=== PATIENT | female | born 1960 | race Caucasian/White ===

== ENCOUNTER 2023-03-27 15:44 | Emergency (ER) | payer MEDICAID, SELFPAY ==
[2023-03-27 16:27] VITALS: BP 117/78; PULSE 62; RESP 18; TEMP 36.9; O2SAT 98; BMI 24.9
--- NOTE | 2023-03-27 16:32 | XR_ITS ---
The [place] [id number] Patient Name: MIKE ALLISON MRN: [id number] date: 1960 Sex: F Assigned Patient Location: ER Current Patient Location: ED.MAIN Accession/Order Number: [id number] Exam Date: 03/27/2023 16:40 Report Date: 03/27/2023 17:37 At the request of: ANNALISA BARBA Procedure: XR chest 2V XR chest 2V 03/27/2023 4:40 PM EDT INDICATION: Dyspnea x1 week. COMPARISON: Radiograph the chest 06/15/2011 FINDINGS: Cardiomediastinal silhouette within normal limits. Left perihilar bronchial wall thickening with faint groundglass opacity in the left lower lobe. No focal consolidation or pleural effusion. No pneumothorax. Cholecystectomy clips right upper quadrant. No acute fracture or dislocation. Fixation hardware lumbar spine. IMPRESSION: 1. Infectious versus inflammatory bronchiolitis within the left lower lobe. Electronically authenticated by: GILBERT CORDERO Date: 03/27/2023 17:37
--- NOTE | 2023-03-27 16:38 | ED.URI1 ---
HPI - URI/Sore Throat General Chief Complaint: Upper Respiratory Infection Stated Complaint: URTI Time Seen by Provider: 03/27/23 16:35 Source: patient Limitations: no limitations History of Present Illness HPI Narrative: 62-year-old female presents for a four day history of cough and her left lung hurting. She coughed up some brown phlegm today. She is not worried about Covid. No vomiting or diarrhea. She thought she would be getting better within four days but she didn't so she came in here. She is a nonsmoker. Related Data Previous Rx's Medication Instructions Recorded azithromycin 250 mg tablet See Rx Instructions PO .COMPLEX #6 03/27/23 (Zithromax Z-Reece) tabs benzonatate 200 mg capsule 200 mg PO TID PRN cough #20 caps 03/27/23 Allergies Allergy/AdvReac Type Severity Reaction Status Date / Time Penicillins Allergy Intermediate Verified 03/27/23 16:29 Review of Systems ROS Narrative A ten point review of systems is negative except as noted above. Exam Narrative Exam Narrative: Nurses note and vital signs reviewed and patient is not hypoxic. General: The patient appears well and in no apparent distress. Patient is resting comfortably on cart. Skin: Warm, dry, no pallor noted. There is no rash noted. Head: Normocephalic, atraumatic Eye: Normal conjunctiva, no drainage Ears, Nose, Mouth, and Throat: oral mucosa is moist. Nares patent. Cardiovascular: Regular Rate and Rhythm Respiratory: Patient is in no distress, no accessory muscle use, lungs are clear to auscultation, no wheezing, rales or rhonchi Back: non-tender GI: soft and nontender Musculoskeletal: The patient has no evidence of calf tenderness, no pitting edema, symmetrical pulses noted bilaterally Neurological: A&O, normal speech Psychiatric: Cooperative Constitutional Vital Signs - 24 hr 03/27/23 16:27 Temperature 98.5 F Pulse Rate [Monitor] 62 Respiratory Rate 18 Blood Pressure [Left Arm] 117/78 Pulse Oximetry 98 Oxygen Delivery Method Room Air Course Vital Signs Vital signs: Vital Signs Temperature 98.5 F 03/27/23 16:27 Pulse Rate 62 03/27/23 16:27 Respiratory Rate 18 03/27/23 16:27 Blood Pressure 117/78 03/27/23 16:27 Pulse Oximetry 98 03/27/23 16:27 Oxygen Delivery Method Room Air 03/27/23 16:27 Temperature 98.5 F 03/27/23 16:27 Pulse Rate 62 03/27/23 16:27 Respiratory Rate 18 03/27/23 16:27 Blood Pressure 117/78 03/27/23 16:27 Pulse Oximetry 98 03/27/23 16:27 Oxygen Delivery Method Room Air 03/27/23 16:27 MDM - URI/Sore Throat MDM Narrative Medical decision making narrative: chest x-ray per radiologist shows bronchiolitis but no infiltrate. Treatment diagnosis and follow-up were discussed with the patient. Differential Diagnosis Differential diagnosis: Likely upper respiratory infection, viral infection, bronchitis and pharyngitis Discharge Plan Discharge Chief Complaint: Upper Respiratory Infection Clinical Impression: Upper respiratory infection Patient Disposition: Home, Self-Care Time of Disposition Decision: 18:25 Condition: Good Mode of Transportation: Private Vehicle Prescriptions / Home Meds: New azithromycin [Zithromax Z-Reece] 250 mg tablet See Rx Instructions .ROUTE .COMPLEX Qty: 6 0RF Rx Instructions: For 250 mg dose pack: take 500 mg today (day 1), then 250 mg for 4 days (days 2-5) benzonatate 200 mg capsule 200 mg PO TID PRN (Reason: cough) Qty: 20 0RF Instructions: Upper Respiratory Infection (ED) Stand Alone Forms: Portal Instructions Referrals: Physician,Non-Staff, MD [Primary Care Provider] - 1 week
== END 2023-03-27 18:43 | disposition home or self-care (01) ==
PROVIDERS: Emergency Provider Emergency Medicine
DX: J06.9 Acute upper respiratory infection, unspecified (principal)
CPT/HCPCS: 71046; 99283

== ENCOUNTER 2024-01-18 16:24 | Emergency (ER) | payer MEDICAID, SELFPAY ==
[2024-01-18 16:33] VITALS: BP 142/90; PULSE 76; TEMP 36.7; O2SAT 97; BMI 23.8
--- NOTE | 2024-01-18 16:40 | ED.URI1 ---
HPI - URI/Sore Throat General Chief Complaint: Upper Respiratory Infection Stated Complaint: shortness of breath Time Seen by Provider: 01/18/24 16:30 Source: patient Limitations: no limitations History of Present Illness HPI Narrative: Patient is a 63-year-old female who presents to the emergency department with flulike illness of cough and congestion that began yesterday. She has had no fevers, chest pain. She states she has burning in her left lung when she coughs and she is worried that she may have aspirated when she reflux yesterday. She has had no persistent vomiting or diarrhea. She does not take any medications for COPD, she does not smoke. She states her boyfriend had influenza last week. No medications prior to arrival. Related Data Previous Rx's ?Medication ?Instructions ?Recorded azithromycin 250 mg tablet See Rx Instructions PO .COMPLEX #6 03/27/23 (Zithromax Z-Reece) tabs benzonatate 200 mg capsule 200 mg PO TID PRN cough #20 caps 03/27/23 tklgxnvvumunnlb-lwveszulpnfwqsy-FD 10 ml PO Q6H PRN cold symptoms 01/18/24 2 mg-30 mg-10 mg/5 mL oral syrup #200 mL (Bromfed DM) Allergies Allergy/AdvReac Type Severity Reaction Status Date / Time Penicillins Allergy Intermediate Verified 03/27/23 16:29 Review of Systems ROS Constitutional Denies: fever or chills Ears, nose, mouth, and throat Denies: throat pain or nasal congestion Cardiovascular Denies: chest pain Respiratory Reports: cough; Denies: shortness of breath, wheezing, change in phlegm color or coughing up blood Gastrointestinal Denies: nausea or vomiting Musculoskeletal Denies: back pain Integumentary/Breast Denies: rash Hematologic/Lymphatic Denies: easy bruising or easy bleeding Exam Narrative Exam Narrative: Gen.: Awake, alert, in no distress Head: Normocephalic, atraumatic ENT: Moist mucous membranes Respiratory: No respiratory distress, lungs clear bilaterally; Patient speaks in full sentences, no wheezing or rhonchi noted Cardio: Regular rate and rhythm Extremities: Moves extremities equally, no pedal edema Psych: Normal mood and affect Neuro: No focal neuro deficit Skin: Warm, dry, intact Constitutional Vital Signs, click to edit/add: Last Vital Signs Temp 98.1 F 01/18/24 16:33 Pulse 76 01/18/24 16:33 Resp 18 01/18/24 16:33 BP 142/90 H 01/18/24 16:33 Pulse Ox 97 01/18/24 16:33 O2 Del Method Room Air 01/18/24 16:33 Course Vital Signs Vital signs: Vital Signs Temperature 98.1 F 01/18/24 16:33 Pulse Rate 76 01/18/24 16:33 Respiratory Rate 18 01/18/24 16:33 Blood Pressure 142/90 H 01/18/24 16:33 Pulse Oximetry 97 01/18/24 16:33 Oxygen Delivery Method Room Air 01/18/24 16:33 Temperature 98.1 F 01/18/24 16:33 Pulse Rate 76 01/18/24 16:33 Respiratory Rate 18 01/18/24 16:33 Blood Pressure 142/90 H 01/18/24 16:33 Pulse Oximetry 97 01/18/24 16:33 Oxygen Delivery Method Room Air 01/18/24 16:33 MDM - URI/Sore Throat MDM Narrative Medical decision making narrative: COVID swabs obtained, chest x-ray obtained. Patient with stable vital signs in the emergency department. She is negative for COVID and influenza, chest x-ray with no evidence of aspiration. Patient given Decadron in the ER and discharged home on a cough medication. Follow-up with PCP and return to the ER if symptoms change or worsen Medical Records Attestation: I reviewed the patient's medical records. Lab Data Attestation: I reviewed the patient's lab results. Labs: Lab Results 01/18/24 Range/Units 16:45 Influenza Type A Ag Negative Influenza Type B Ag Negative SARS-CoV-2 Ag (CV2AG) Negative (NEGATIVE) Imaging Data Chest x-ray: Attestation: I have reviewed the pertinent imaging results. Radiologist's impression: ITS Impressions Chest X-Ray 01/18/24 16:45 IMPRESSION: No acute abnormality identified. Electronically authenticated by: John MAURO Date: 01/18/2024 17:41 Discharge Plan Discharge Stand Alone Forms: Portal Instructions Chief Complaint: Upper Respiratory Infection Clinical Impression: Upper respiratory infection Patient Disposition: Home, Self-Care Time of Disposition Decision: 17:46 Condition: Good Prescriptions / Home Meds: New kaadncpsdwdttvf-krjpecjve-[place] [Bromfed DM] 2-30-10 mg/5 mL syrup 10 ml PO Q6H PRN (Reason: cold symptoms) Qty: 200 0RF No Action azithromycin [Zithromax Z-Reece] 250 mg tablet See Rx Instructions .ROUTE .COMPLEX Qty: 6 0RF Rx Instructions: For 250 mg dose pack: take 500 mg today (day 1), then 250 mg for 4 days (days 2-5) benzonatate 200 mg capsule 200 mg PO TID PRN (Reason: cough) Qty: 20 0RF Print Language: Monegasque Instructions: Upper Respiratory Infection (ED) Referrals: [facility] [Primary Care Provider] - 1 week
--- NOTE | 2024-01-18 16:45 | XR_ITS ---
[address] [address] Patient Name: MIKE ALLISON MRN: [id number] date: 1960 Sex: F Assigned Patient Location: ER Current Patient Location: ER Accession/Order Number: [id number] Exam Date: 01/18/2024 16:42 Report Date: 01/18/2024 17:41 At the request of: SUSHILA JOYA Procedure: XR chest 1V ONE-VIEW CHEST RADIOGRAPH, 01/18/2024 4:42 PM EDT COMPARISON: Chest, 06/15/2011 CLINICAL HISTORY: Cough FINDINGS: No acute cardiopulmonary disease. No pulmonary edema, pneumothorax, or pleural effusion. Normal heart size. No acute osseous abnormality. XR/XR chest 1V IMPRESSION: No acute abnormality identified. Electronically authenticated by: John MAURO Date: 01/18/2024 17:41
[2024-01-18 17:14] LABS: Influenza Virus A Antigen Negative; Influenza Virus B Antigen Negative; Internal Control Within Normal Limits; SARS-CoV-2 Ag NEGATIVE (NEGATIVE)
[2024-01-18] MEDS: DEXAMETHASONE SOD PHOS 10 MG/ML VIAL PO (17:53)
== END 2024-01-18 17:56 | disposition home or self-care (01) ==
PROVIDERS: Physician Assistant; Emergency Provider Emergency Medicine
DX: J06.9 Acute upper respiratory infection, unspecified (principal); Z20.822 Contact with and (suspected) exposure to COVID-19
CPT/HCPCS: 71045; 87804; 87811; 99285; J1100

== ENCOUNTER 2024-05-29 14:04 | Emergency (ER) | payer MEDICAID, SELFPAY ==
[2024-05-29 14:08] VITALS: BP 132/84; PULSE 89; TEMP 37.1; O2SAT 98; BMI 24.3
--- NOTE | 2024-05-29 14:15 | ED_ITS ---
<Statement entered by Lakeisha Henry MD - 05/29/24 15:32> This documentation has been reviewed and approved. HPI - URI/Sore Throat General Chief Complaint: Upper Respiratory Infection Stated Complaint: SINUS INFECTION Time Seen by Provider: 05/29/24 14:12 History of Present Illness HPI Narrative: 64 year old female presents to the ED for bilateral ear pain, SMALL, sore throat, sinus congestion/drainage. Onset was 4-5 days ago. Denies fever, chills, cough, SOB. She has been taking Tylenol for her sx. Related Data Previous Rx's ?Medication ?Instructions ?Recorded azithromycin 250 mg tablet See Rx Instructions PO .COMPLEX #6 03/27/23 (Zithromax Z-Reece) tabs benzonatate 200 mg capsule 200 mg PO TID PRN cough #20 caps 03/27/23 rvsygaujrqijwdb-tyrhccacnwizfnu-JY 10 ml PO Q6H PRN cold symptoms 01/18/24 2 mg-30 mg-10 mg/5 mL oral syrup #200 mL (Bromfed DM) cetirizine 10 mg capsule (Zyrtec) 10 mg PO DAILY #7 caps 05/29/24 guaifenesin 600 mg tablet, 600 mg PO BID PRN congestion #10 05/29/24 extended release 12 hr (Mucinex) tabs prednisone 20 mg tablet 20 mg PO BID 5 days #10 tabs 05/29/24 Allergies Allergy/AdvReac Type Severity Reaction Status Date / Time sertraline [From Zoloft] Allergy Severe Joint Pain Verified 05/29/24 14:08 Penicillins Allergy Intermediate Rash Verified 05/29/24 14:08 Review of Systems ROS Constitutional Denies: fever or chills Ears, nose, mouth, and throat Reports: throat pain, ear pain, nasal discharge and nasal congestion; Denies: neck pain, throat swelling, difficulty swallowing or ear discharge Cardiovascular Denies: chest pain Respiratory Denies: shortness of breath or cough Gastrointestinal Denies: abdominal pain, nausea or vomiting Neurological Reports: headache; Denies: dizziness Exam Constitutional Vital Signs, click to edit/add: Last Vital Signs Temp 98.8 F 05/29/24 14:08 Pulse 89 05/29/24 14:08 Resp 16 05/29/24 14:08 BP 132/84 05/29/24 14:08 Pulse Ox 98 05/29/24 14:08 Common normals: no apparent distress and oriented x3 General appearance: cooperative HENMT Common normals: normocephalic Face and sinus: normal facial exam Nose: external nose normal and nares normal; no nasal discharge External ear: external ears normal External auditory canal: EACs normal Tympanic membrane: TMs normal bilaterally Mouth: oral and palatal mucosa normal, lip normal and tongue normal; no drooling and no muffled voice Throat: posterior oropharynx normal and uvula midline Eye Common normals: conjunctivae normal and no scleral icterus Neck & C-Spine Common normals: supple Chest Chest: symmetrical chest wall rise Respiratory Common normals: normal respiratory effort and clear to auscultation bilaterally Effort & inspection: able to speak in complete sentences Cardio Common normals: regular rate and regular rhythm Neuro Common normals: oriented x3 Sensorium/orientation: awake and alert Speech: speech normal Course Vital Signs Vital signs: Vital Signs Temperature 98.8 F 05/29/24 14:08 Pulse Rate 89 05/29/24 14:08 Respiratory Rate 16 05/29/24 14:08 Blood Pressure 132/84 05/29/24 14:08 Pulse Oximetry 98 05/29/24 14:08 Temperature 98.8 F 05/29/24 14:08 Pulse Rate 89 05/29/24 14:08 Respiratory Rate 16 05/29/24 14:08 Blood Pressure 132/84 05/29/24 14:08 Pulse Oximetry 98 05/29/24 14:08 MDM - URI/Sore Throat MDM Narrative Medical decision making narrative: Covid-19 was negative. Sx onset was 4-5 days ago. She requested prednisone. Prescriptions were provided for prednisone, Zyrtec, and Mucinex. Follow up with pcp for a recheck, further evaluation and treatment. Differential Diagnosis Differential diagnosis: Likely upper respiratory infection, sinusitis, viral infection and pharyngitis Medical Records Attestation: I reviewed the patient's medical records. Lab Data Attestation: I reviewed the patient's lab results. Labs: Lab Results 05/29/24 Range/Units 14:11 SARS-CoV-2 Ag (CV2AG) Negative (NEGATIVE) Discharge Plan Discharge Stand Alone Forms: Work/School Release, Portal Instructions Chief Complaint: Upper Respiratory Infection Clinical Impression: Upper respiratory infection, viral Patient Disposition: Home, Self-Care Time of Disposition Decision: 15:01 Condition: Good Mode of Transportation: Private Vehicle Prescriptions / Home Meds: New prednisone 20 mg tablet 20 mg PO BID 5 Days Qty: 10 0RF guaifenesin [Mucinex] 600 mg tablet extended release 12hr 600 mg PO BID PRN (Reason: congestion) Qty: 10 0RF Zyrtec 10 mg capsule 10 mg PO DAILY Qty: 7 0RF No Action fvmsresnhzknpxd-ohqgtympd-YD [Bromfed DM] 2-30-10 mg/5 mL syrup 10 ml PO Q6H PRN (Reason: cold symptoms) Qty: 200 0RF azithromycin [Zithromax Z-Reece] 250 mg tablet See Rx Instructions .ROUTE .COMPLEX Qty: 6 0RF Rx Instructions: For 250 mg dose pack: take 500 mg today (day 1), then 250 mg for 4 days (days 2-5) benzonatate 200 mg capsule 200 mg PO TID PRN (Reason: cough) Qty: 20 0RF Print Language: Serbian Additional Instructions: Return to the ER for new or worsening symptoms. Referrals: [facility] [Primary Care Provider] - 1 week
[2024-05-29 14:57] LABS: Internal Control Within Normal Limits; SARS-CoV-2 Ag NEGATIVE (NEGATIVE)
[2024-05-29 15:20] VITALS: PULSE 75; O2SAT 99
== END 2024-05-29 15:22 | disposition home or self-care (01) ==
PROVIDERS: Emergency Provider Emergency Medicine
DX: J06.9 Acute upper respiratory infection, unspecified (principal); Z20.822 Contact with and (suspected) exposure to COVID-19
CPT/HCPCS: 87811; 99283

== ENCOUNTER 2024-09-09 11:21 | Emergency (ER) | payer MEDICAID, SELFPAY ==
[2024-09-09 11:36] VITALS: BP 122/73; PULSE 92; TEMP 36.7; O2SAT 100; BMI 24.5
--- NOTE | 2024-09-09 11:49 | XR_ITS ---
The [address] [address] Patient Name: MIKE ALLISON MRN: [id number] date: 1960 Sex: F Assigned Patient Location: ER Current Patient Location: ER Accession/Order Number: [id number] Exam Date: 09/09/2024 12:37 Report Date: 09/09/2024 13:54 At the request of: ANNALISA BARBA Procedure: XR abdomen 1V EXAM: XR abdomen 1V HISTORY: Left upper quadrant pain COMPARISON: None. TECHNIQUE: Supine KUB. FINDINGS: No bowel distention, ileus or obstruction. Large amount colonic stool especially pattern flexure, splenic flexure left colon and pelvic colon. No flank or pelvic calcification. Right upper quadrant vascular clips from previous cholecystectomy. Hardware seen lumbar sacral spine from previous surgery. Mild DJD hips. XR/XR abdomen 1V IMPRESSION: No evidence of bowel distention, ileus or obstruction. Large amount of colonic stool most prominent splenic flexure and left colon. Electronically authenticated by: BHUMI WOODY Date: 09/09/2024 13:54
--- NOTE | 2024-09-09 11:50 | ED_ITS ---
HPI HPI - General Adult General Chief complaint: Urogenital-Female Stated complaint: FLANK PAIN Time Seen by Provider: 09/09/24 11:22 Source: patient Mode of arrival: walk-in History of Present Illness HPI narrative: 64-year-old female presents for left upper quadrant abdominal pain. She has had it for about 48 hours and it seems to come and go and is sharp. It was not precipitated by any unusual activity or any trauma. She has had no dysuria or hematuria. She has had no constipation or diarrhea. No vomiting or loss of appetite. Related Data Home Medications ?Medication ?Instructions ?Recorded ?Confirmed clonazepam 0.5 mg tablet 0.5 mg PO .QD PRN anxiety 09/09/24 09/09/24 ferrous sulfate 325 mg (65 mg 325 mg PO BIDWM 09/09/24 09/09/24 iron) tablet (FeroSul) gabapentin 300 mg capsule 300 mg PO TID PRN restless leg(s) 09/09/24 09/09/24 losartan 50 mg tablet 50 mg PO .QD 09/09/24 09/09/24 magnesium oxide 400 mg (241.3 mg 400 mg PO BID 09/09/24 09/09/24 magnesium) tablet meloxicam 15 mg tablet 15 mg PO .QD 09/09/24 09/09/24 omeprazole 20 mg capsule,delayed 20 mg PO .ACB 09/09/24 09/09/24 release potassium chloride 10 mEq 10 meq PO BIDWM 09/09/24 09/09/24 tablet,extended release pramipexole 0.125 mg tablet 0.125 mg PO .QHS 09/09/24 09/09/24 spironolactone 50 mg tablet 50 mg PO .ACB 09/09/24 09/09/24 Previous Rx's ?Medication ?Instructions ?Recorded cetirizine 10 mg capsule (Zyrtec) 10 mg PO DAILY #7 caps 05/29/24 Allergies Allergy/AdvReac Type Severity Reaction Status Date / Time sertraline (From Zoloft) Allergy Severe Joint Pain Verified 05/29/24 14:08 Penicillins Allergy Intermediate Rash Verified 05/29/24 14:08 Opioid HPI Opioid Management Most Recent Opioid Data: No Data to Display Review of Systems ROS Narrative A ten point review of systems is negative except as noted above. PFSH PFSH Social History Little interest or pleasure in doing things: not at all Feeling down, depressed, or hopeless: not at all Exam Narrative Exam Narrative: Nurses note and vital signs reviewed and patient is not hypoxic. General: The patient appears well and in no apparent distress. Patient is resting comfortably on cart. Skin: Warm, dry, no pallor noted. There is no rash noted. Head: Normocephalic, atraumatic Eye: Normal conjunctiva, no drainage Ears, Nose, Mouth, and Throat: oral mucosa is moist. Nares patent. Cardiovascular: Regular Rate and Rhythm Respiratory: Patient is in no distress, no accessory muscle use, lungs are clear to auscultation, no wheezing, rales or rhonchi Back: non-tender GI: Soft and nondistended. Very minimal tenderness in the left upper quadrant without mass. Musculoskeletal: The patient has no evidence of calf tenderness, no pitting edema, symmetrical pulses noted bilaterally Neurological: A&O, normal speech Psychiatric: Cooperative Constitutional Vital Signs, click to edit/add: Last Vital Signs Temp 98.1 F 09/09/24 11:36 Pulse 92 H 09/09/24 11:36 Resp 16 09/09/24 11:36 BP 122/73 09/09/24 11:36 Pulse Ox 100 09/09/24 11:36 O2 Del Method Room Air 09/09/24 11:36 Course Vital Signs Vital signs: Vital Signs Temperature 98.1 F 09/09/24 11:36 Pulse Rate 92 H 09/09/24 11:36 Respiratory Rate 16 09/09/24 11:36 Blood Pressure 122/73 09/09/24 11:36 Pulse Oximetry 100 09/09/24 11:36 Oxygen Delivery Method Room Air 09/09/24 11:36 Temperature 98.1 F 09/09/24 11:36 Pulse Rate 92 H 09/09/24 11:36 Respiratory Rate 16 09/09/24 11:36 Blood Pressure 122/73 09/09/24 11:36 Pulse Oximetry 100 09/09/24 11:36 Oxygen Delivery Method Room Air 09/09/24 11:36 Medical Decision Making MDM Narrative Medical decision making narrative: Blood work and urinalysis are negative. X-ray shows constipation. Treatment diagnosis and follow-up were discussed with the patient and she was recommended MiraLAX. Differential Diagnosis Differential Diagnosis: Constipation, UTI, nonspecific abdominal pain Lab Data Lab results reviewed: Yes I reviewed the patient's lab results Labs: Lab Results 09/09/24 09/09/24 Range/Units 11:43 11:57 WBC 5.3 (4.0-11.0) 10^3/uL RBC 4.33 (4.20-5.40) 10^6/uL Hgb 12.6 (12.0-16.0) g/dL Hct 37.2 (36.0-48.0) % MCV 85.9 (81.0-99.0) fL MCH 29.1 (26.7-34.0) pg MCHC 33.9 (29.9-35.2) g/dL RDW 12.1 (11.0-15.0) % Plt Count 259 (150-450) 10^3/uL MPV 8.7 L (9.5-13.5) fL Neut % (Auto) 64.1 (43.0-75.0) % Lymph % (Auto) 24.7 (20.5-60.0) % [place] % (Auto) 8.9 (1.7-12.0) % Eos % (Auto) 1.3 (0.9-7.0) % Baso % (Auto) 0.8 (0.2-2.0) % Neut # (Auto) 3.4 (1.4-6.5) 10^3/uL Lymph # (Auto) 1.3 (1.2-3.8) 10^3/uL [place] # (Auto) 0.5 (0.3-0.8) 10^3/uL Eos # (Auto) 0.1 (0.0-0.7) 10^3/uL Baso # (Auto) 0.0 (0.0-0.1) 10^3/uL Abs Immat Gran (auto) 0.01 (0.00-0.03) 10^3/uL Imm/Tot Granulo (auto) 0.2 (0.0-0.5) % Sodium 139 (136-145) mmol/L Potassium 4.2 (3.5-5.1) mmol/L Chloride 101 (98-107) mmol/L Carbon Dioxide 27.5 (21.0-32.0) mmol/L Anion Gap 14.7 BUN 14.0 (7.0-18.0) mg/dL Creatinine 1.17 H (0.55-1.02) mg/dL Est GFR ( Amer) 56 L (>=60 mL/min/1.73m^2) Est GFR (Non-Af Amer) 47 L (>=60 mL/min/1.73m^2) BUN/Creatinine Ratio 12.0 Glucose 95 (74-106) mg/dL Calcium 9.0 (8.5-10.1) mg/dL Urine Color Lt. yellow (YELLOW) Urine Clarity Clear (CLEAR) Urine pH 5.5 (5.0-9.0) Ur Specific [place] 1.020 (1.005-1.025) Urine Protein Negative (NEG/TRACE) mg/dL Urine Glucose (UA) Negative (NEGATIVE) mg/dL Urine Ketones Negative (NEGATIVE) mg/dL Urine Occult Blood Small A (NEGATIVE) Urine Nitrite Negative (NEGATIVE) Urine Bilirubin Negative (NEGATIVE) Urine Urobilinogen 0.2 (0.2-1.0) EU/dL Ur Leukocyte Esterase Negative (NEGATIVE) Urine RBC 0-2 (0-2) #/HPF Urine WBC 0-2 A (NONE SEEN) #/HPF Ur Squamous Epith Cells Few A (NONE/RARE) #/LPF Urine Crystals None seen (None Seen) #/HPF Urine Bacteria Trace A (NONE SEEN) #/HPF Urine Casts None seen (NONE SEEN) #/LPF Urine Mucus None seen (NONE SEEN) Imaging Data Abdominal x-ray: Radiologist's impression: ITS Impressions Abdomen X-Ray 09/09/24 11:49 IMPRESSION: No evidence of bowel distention, ileus or obstruction. Large amount of colonic stool most prominent splenic flexure and left colon. Electronically authenticated by: BHUMI WOODY Date: 09/09/2024 13:54 Discharge Plan Discharge Chief Complaint: Urogenital-Female Clinical Impression: Constipation Patient Disposition: Home, Self-Care Time of Disposition Decision: 14:15 Condition: Good Mode of Transportation: Private Vehicle Prescriptions / Home Meds: No Action losartan 50 mg tablet 50 mg PO .QD meloxicam 15 mg tablet 15 mg PO .QD clonazepam 0.5 mg tablet 0.5 mg PO .QD PRN (Reason: anxiety) potassium chloride 10 mEq tablet extended release 10 meq PO BIDWM ferrous sulfate [FeroSul] 325 mg (65 mg iron) tablet 325 mg PO BIDWM pramipexole 0.125 mg tablet 0.125 mg PO .QHS Rx Instructions: 1-2 HRS PRIOR TO BEDTIME gabapentin 300 mg capsule 300 mg PO TID PRN (Reason: restless leg(s)) omeprazole 20 mg capsule,delayed release(DR/EC) 20 mg PO .ACB spironolactone 50 mg tablet 50 mg PO .ACB magnesium oxide 400 mg (241.3 mg magnesium) tablet 400 mg PO BID Zyrtec 10 mg capsule 10 mg PO DAILY Qty: 7 0RF Print Language: Albanian Instructions: Constipation (ED) Additional Instructions: Ieou-sxq-rxsuwjx MiraLAX for constipation Referrals: [facility] [Primary Care Provider] - 1 week
[2024-09-09 12:06] LABS: Basophils Percent Auto 0.8 % (0.2-2.0); Eosinophils Absolute Auto 0.1 10^3/uL (0.0-0.7); Eosinophils Percent Auto 1.3 % (0.9-7.0); Hematocrit 37.2 % (36.0-48.0); Hemoglobin 12.6 g/dL (12.0-16.0); Immature Granulocytes Abs Auto 0.01 10^3/uL (0.00-0.03); Immature Granulocytes Pct Auto 0.2 % (0.0-0.5); Lymphocytes Absolute Auto 1.3 10^3/uL (1.2-3.8); Lymphocytes Percent Auto 24.7 % (20.5-60.0); Mean Corpuscular HGB Conc 33.9 g/dL (29.9-35.2); Mean Corpuscular Hemoglobin 29.1 pg (26.7-34.0); Mean Corpuscular Volume 85.9 fL (81.0-99.0); Mean Platelet Volume 8.7 fL (9.5-13.5); Monocytes Absolute Auto 0.5 10^3/uL (0.3-0.8); Monocytes Percent Auto 8.9 % (1.7-12.0); Neutrophils Absolute Auto 3.4 10^3/uL (1.4-6.5); Neutrophils Percent Auto 64.1 % (43.0-75.0); Platelet Count 259 10^3/uL (150-450); Red Blood Count 4.33 10^6/uL (4.20-5.40); Red Cell Distribution Width 12.1 % (11.0-15.0); White Blood Count 5.3 10^3/uL (4.0-11.0)
[2024-09-09 12:09] LABS: Bilirubin Urine NEGATIVE (NEGATIVE); Blood Urine SMALL (NEGATIVE); Clarity Urine CLEAR (CLEAR); Color Urine LT. YELLOW (YELLOW); Glucose Urine UA NEGATIVE (NEGATIVE); Ketones Urine NEGATIVE (NEGATIVE); Leukocyte Esterase Urine NEGATIVE (NEGATIVE); Nitrite Urine NEGATIVE (NEGATIVE); Protein Urine NEGATIVE (NEG/TRACE); Urobilinogen Urine 0.2 EU/dL (0.2-1.0); pH Urine 5.5 (5.0-9.0)
[2024-09-09 12:13] LABS: Anion Gap 14.7; Carbon Dioxide 27.5 mmol/L (21.0-32.0); Chloride 101 mmol/L (98-107); Estimated GFR (African America 56 (>=60 mL/min/1.73m^2); Estimated GFR (Non-African Ame 47 (>=60 mL/min/1.73m^2); Glucose 95 mg/dL (74-106); Potassium 4.2 mmol/L (3.5-5.1); Sodium 139 mmol/L (136-145)
[2024-09-09 12:21] LABS: Bacteria Urine TRACE #/HPF (NONE SEEN); Cast Seen? NONE SEEN #/LPF (NONE SEEN); Crystals Seen? None Seen #/HPF (None Seen); Mucus Urine NONE SEEN (NONE SEEN); RBC Urine 0-2 #/HPF (0-2); Squamous Epithelial Cell Urine FEW #/LPF (NONE/RARE); WBC Urine 0-2 #/HPF (NONE SEEN)
== END 2024-09-09 14:33 | disposition home or self-care (01) ==
PROVIDERS: Emergency Provider Emergency Medicine
DX: K59.00 Constipation, unspecified (principal)
CPT/HCPCS: 36415; 74018; 80048; 81001; 85025; 99284